=== PATIENT | male | born 1965 | race Caucasian/White ===

== ENCOUNTER 2025-03-28 21:19 | Emergency (ER) | payer BC ==
[~2025-03-28] VITALS: Ht 180.3 cm; Wt 119.0 kg
[2025-03-28 21:58] LABS: BASO # 0.1 10^3/uL (0.0-0.2); BASO % 0.5 % (0.0-1.0); EOS # 0.2 10^3/uL (0.0-0.5); EOS % 1.7 % (0.0-3.0); LYMPH # 1.2 10^3/uL (1.5-5.0); LYMPH % 11.0 % (24.0-44.0); MONO # 0.9 10^3/uL (0.0-0.8); MONO % 8.4 % (2.0-8.0); NEUTROPHILS # 8.7 10^3/uL (1.5-8.5); NEUTROPHILS % 78.1 % (36.0-66.0); PLATELET COUNT, AUTOMATED 250 10^3/uL (150-450)
[2025-03-28 22:16] LABS: CK-MB VALUE MASS 2.2 NG/ML (<3.6); INR 1.03
[2025-03-28 22:17] LABS: ALT/SGPT 21.0 U/L (7.0-40); AST/SGOT 16.0 U/L (<34); CALCIUM LEVEL 8.7 MG/DL (8.5-10.1); CARBON DIOXIDE LEVEL 23.0 MMOL/L (20-31); CHLORIDE LEVEL 108.0 MMOL/L (98-107); CPK CREATINE PHOSPHOKINASE 130.0 U/L (46-171); CREATININE FOR GFR 1.6 MG/DL (0.70-1.30); GLOMERULAR FILTRATION RATE 49.6 (>56); MB/CK RELATIVE INDEX 1.69 (< OR =4); POTASSIUM SERUM 4.1 MMOL/L (3.5-5.1); SODIUM LEVEL 143.0 MMOL/L (136-145)
[2025-03-29] MEDS: MORPHINE 4 MG/ML 1 ML VIAL IV ONE (03:50)
[2025-03-29] MEDS ORDERED: TAMS1CAP17 PO (04:07)
[2025-03-29] MEDS ORDERED: TADA5TAB2 PO (04:07)
[2025-03-29] MEDS ORDERED: FARX1TAB3 PO (04:07)
[2025-03-29] MEDS ORDERED: OLME20TA50 PO (04:07)
[2025-03-29] MEDS ORDERED: HOME MED LIST COMPLETE! XX SCH (04:10)
[2025-03-29 06:38] VITALS: BP 148/72; TEMP 98.1; O2SAT 98
== END 2025-03-29 06:45 | disposition short-term general hospital (02) ==
LOC: M ED 21:19
DX: I20.0 Unstable angina (principal); I24.9 Acute ischemic heart disease, unspecified; K76.0 Fatty (change of) liver, not elsewhere classified; I10 Essential (primary) hypertension; Z82.49 Family history of ischemic heart disease and other diseases of the circulatory system; Z79.899 Other long term (current) drug therapy